=== PATIENT | female | born 1985 | race Caucasian/White ===

== ENCOUNTER 2017-11-03 09:04 | Emergency (ER) | payer OTHER ==
[2017-11-03 09:40] VITALS: BP 156/92
[2017-11-03] MEDS: Ondansetron ODT TAB* 4 MG PO ONE (09:51)
[2017-11-03] MEDS: diPHENhydraMINE IV* 50 MG/ML 1 ml VIAL (BENADRYL) IM ONE (09:52)
--- NOTE | 2017-11-05 07:04 | UC ---
Megan Cordon Jason, scribed for [facility],Miguel Weiner MD on 11/03/17 at 1052 . General HPI - HPI Summary HPI Summary: In Room: This patient is a 32 year old F presenting to [facility] [place] by boyfriend with a chief complaint of vomiting since 1 week ago. The patient states that she has experienced increased stressed as she has been completing finals at [employer], and believes the vomiting is induced by stress and anxiety. The patient rates the pain 0/10 in severity. Symptoms aggravated by stress. Symptoms alleviated by nothing. Patient reports nausea. Patient denies pain, headache, and abdominal pain. Patient has never been in the hospital overnight for any reason. MD note: VSS, afebrile, BP 156/92 pulse ox: 99. Visit history: visit for vomiting. Pt has hx of stress-induced vomiting. Nurses note: Pt states she has been feeling nauseated and vomiting on/off for the past week. 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 Afebrile and without any abdominal pain. - History of Current Complaint Chief Complaint: UCGI Stated Complaint: VOMITING Time Seen by Provider: 11/03/17 09:41 Hx Obtained From: Patient Hx Last Menstrual Period: 10/13/17 Onset/Duration: Sudden Onset, Gradual Onset, Lasting Weeks - since 1 week ago, Still Present - Allergy/Home Medications Allergies/Adverse Reactions: Allergies Allergy/AdvReac Type Severity Reaction Status Date / Time No Known Allergies Allergy Verified 11/03/17 09:41 Home Medications: Home Medications Amphetamine MIXED SALT TAB* [Adderall TAB*] 10 mg PO DAILY 11/03/17 [History Confirmed 11/03/17] Lisdexamfetamine(NF) [Vyvanse(NF)] 20 mg PO DAILY 11/03/17 [History Confirmed ] PMH/Surg Hx/FS Hx/Imm Hx Previously Healthy: No Endocrine History: Other Other Endocrine History: negative DM Respiratory History: Other Other Respiratory History: negative asthma Psychological History: Anxiety - Surgical History Surgical History: None - Family History Known Family History: Positive: Cardiac Disease, Hypertension Negative: Diabetes - Social History Alcohol Use: Weekly Alcohol Amount: wine Substance Use Type: None Smoking Status (MU): Former Smoker Amount Used/How Often: 6 cig/day - Immunization History Most Recent Influenza Vaccination: UNKNOWN Review of Systems All Other Systems Reviewed And Are Negative: Yes - Comments Additional Review of Systems Comments: A 12 point review of systems was completed and significantly positive for: vomiting. The remainder of the review was negative except as stated above in the HPI. Physical Exam Triage Information Reviewed: Yes Vital Signs: Initial Vital Signs Temp 97.5 F 11/03/17 09:35 Pulse 84 11/03/17 09:35 Resp 16 11/03/17 09:35 BP 156/92 11/03/17 09:35 Pulse Ox 99 11/03/17 09:35 - Additional Comments General: The patient is well-nourished in no acute distress and in no acute pain. Skin: The skin is warm and dry and skin color reflects adequate perfusion. HEENT: The head is normocephalic and atraumatic. The pupils are equal and reactive. The conjunctivae are clear and without drainage.Nares are patent and without drainage. Mouth reveals moist mucous membranes and the throat is without erythema and exudate. The external ears are intact. The ear canals are patent and without drainage. The tympanic membranes are intact. Neck is supple with full range of motion and non-tender. There are no carotid bruits. There is no neck vein distension. Respiratory: Chest is non-tender.Lungs are clear to auscultation and breath sounds are symmetrical and equal. Cardiovascular: Heart is regular rate and rhythm.There is no murmur or rub auscultated. There is no peripheral edema and pulses are symmetrical and equal. Abdomen: The abdomen is soft and non-tender. There is no organomegaly palpated. NO PERITANEAL SIGNS. HYPERACTIVE BOWEL SOUNDS. Musculoskeletal: There is no back pain noted.Extremities are non-tender with full range of motion. There is good capillary refill.There is no peripheral edema or calf tenderness elicited. Neurological: Patient is alert and oriented to person, place and time.The patient has symmetrical motor strength in all four extremities.Cranial nerves are grossly intact. Deep tendon reflexes are symmetrical and equal in all four extremities. Psychiatric: The patient has an appropriate affect and does not exhibit any anxiety or depression Course/Dx - Course Course Of Treatment: This patient is a 32 year old F presenting to [facility] accompanied by boyfriend with a chief complaint of vomiting since 1 week ago. Note: Elevated blood pressure without diagnosis of hypertension. Patient referred to PCP within 1 day-4 weeks for follow-up. The patient was given Zofran and Benadryl and responded well after 1 hour. She was no longer vomiting and appeared comfortable. I discussed with her cyclic vomiting syndrome and vomiting due to anxiety. She will follow up with her psychiatrist. Medications have been included in the original chart and reviewed. - Differential Dx - Multi-Symptom Differential Diagnoses: Other - anxiety, viral syndrome, vomiting Provider Diagnoses: vomiting unclear etiology Discharge - Discharge Plan Condition: Stable Disposition: HOME Prescriptions: Ondansetron ODT TAB* [Zofran Odt TAB*] 4 mg PO Q6H #10 tab.odt Patient Education Materials: Acute Nausea and Vomiting (ED) Referrals: No Primary Care Phys,NOPCP [Primary Care Provider] - Additional Instructions: Thanks for helping with the [employer]. WE DISCUSSED: 1. Your vomiting may be a syndrome or it may be related to anxiety. 2. Your blood pressure was elevated; you should re check it within a month and follow up if it's above 120/80. 3. I have given you Zofran. 4. I recommend that you take Benadryl 50mg for vomiting if it occurs again. 5. Ice chips to keep hydrated. 6. Go to ED if you are not urinating or if you are dehydrated. 7. Call or recheck at any time for questions or concerns. The documentation as recorded by the Megan presley Jason accurately reflects the service I personally performed and the decisions made by me, Miguel Solis MD.
== END 2017-11-03 10:57 | disposition home or self-care (01) ==
LOC: UCEAST 09:04
DX: R11.11 Vomiting without nausea (principal); F41.9 Anxiety disorder, unspecified; Z87.891 Personal history of nicotine dependence
CPT/HCPCS: 96372; 99212; A9270-GY; G0463; J1200

== ENCOUNTER 2017-11-04 13:45 | Emergency (ER) | payer OTHER ==
[2017-11-04] MEDS ORDERED: NS 0.9% 1000 ML* 1,000 ML IV ONE (16:08)
[2017-11-04] MEDS ORDERED: LORazepam INJ* 2 MG/ML 1 ML VIAL IV PUSH ONE (16:10)
[2017-11-04 16:54] VITALS: BP 132/89
--- NOTE | 2017-11-05 22:04 | UC ---
Nausea/Vomiting/Diarrhea HPI - HPI Summary HPI Summary: 32 y/o female presents to the urgent care accompany by boyfriend c/o multiple episodes of nausea and vomiting for the past week. Pt reports she was seen here yesterday for her vomiting and Rx Zofran PO and Bendaryl PO and her symptoms have not improved. She had already 6 episodes of vomiting today. some are clear and some with bile. Pt states she has Hx of cyclic vomiting syndrome induced by anxiety or stress. She was been recently in finals at [employer]. She hasn't been eating, only drinking. Pt denies abdominal pain, hematemesis, diarrhea, fever, SOB, chest pain, or urinary symptoms. - History of Current Complaint Chief Complaint: UCAbdominalPain Stated Complaint: VOMITING Time Seen by Provider: 11/04/17 15:50 Hx Obtained From: Patient, Family/Follow Up Rep - boyfriend Hx Last Menstrual Period: 10/14/17 ?: No Onset/Duration: Gradual Onset, Lasting Weeks - 1 week, Still Present, Worse Since - yesterday Timing: Constant Severity Initially: Mild Severity Currently: Moderate Pain Intensity: 0 Pain Scale Used: 0-10 Numeric Character: Not Applicable Aggravating Factor(s): Food Alleviating Factor(s): Nothing Vomiting Frequency: Every 1-2 hours Nausea/Vomiting Duration: 3-7 days Vomiting Characteristics: Bilious, Nonbilious Diarrhea Presence: No - Risk Factors Influenza Risk Factors: Negative Surgical Obstruction Risk Factor(s): Negative - Allergies/Home Medications Allergies/Adverse Reactions: Allergies Allergy/AdvReac Type Severity Reaction Status Date / Time No Known Allergies Allergy Verified 11/04/17 14:03 Home Medications: Home Medications diPHENhydraMINE PO* [Benadryl PO 25 MG TAB*] 25 mg PO Q6H PRN 11/04/17 [History Confirmed 11/04/17] PMH/Surg Hx/FS Hx/Imm Hx Previously Healthy: Yes Other GI/ History: cyclic vomiting syndrome Psychological History: Anxiety, Depression - Surgical History Surgical History: None - Family History Known Family History: Positive: Cardiac Disease, Hypertension Negative: Diabetes - Social History Occupation: Student Lives: With Family Alcohol Use: None Alcohol Amount: wine Substance Use Type: None Smoking Status (MU): Former Smoker Amount Used/How Often: 6 cig/day - Immunization History Most Recent Influenza Vaccination: UNKNOWN Review of Systems Constitutional: Fatigue Skin: Negative Eyes: Negative ENT: Negative Respiratory: Negative Cardiovascular: Negative Gastrointestinal: Vomiting, Nausea Genitourinary: Negative Motor: Weakness Neurovascular: Negative Musculoskeletal: Negative Neurological: Negative Psychological: Negative Is Patient Immunocompromised?: No All Other Systems Reviewed And Are Negative: Yes Physical Exam Triage Information Reviewed: Yes Vital Signs: Initial Vital Signs Temp 97.8 F 11/04/17 14:05 Pulse 83 11/04/17 14:05 Resp 18 11/04/17 14:05 BP 149/96 11/04/17 14:05 Pulse Ox 99 11/04/17 14:05 - Additional Comments Vital Signs Reviewed: Yes General:Patient is a well developed and nourished female who is laying on the examining table w/ mild distress due to vomiting. Eyes: Positive: Conjunctiva Clear - PERRLA, EOMI, fundi grossly normal ENT: Positive: Normal ENT inspection, Hearing grossly normal, Pharynx normal, TMs normal Neck: Positive: Supple, Nontender, No Lymphadenopathy Respiratory: Positive: Chest non-tender, Lungs clear, Normal breath sounds, No respiratory distress Cardiovascular: Positive: RRR,S1 and S2 present, No Murmur, Pulses Normal, Brisk Capillary Refill Abdomen Description: Positive: Nontender, Other: - Abd: Flat with no distention. No surface trauma, scars, incisions. hyperactive bowel sounds present in all four quadrants. No tenderness, guarding, rigidity to palpation. No masses palpated, no pulsation in epigastric area. No organomegaly. Negative Austwell signs. No periumbilical tenderness. No rebound in the lower quadrants. NT over McBurneys point. no distension. Good femoral pulses bilaterally. No hernia noted. No CVAT bilaterally Musculoskeletal: Positive: Strength Intact, ROM Intact, No Edema,FROM in all major joints, no edema, no cyanosis or clubbing. Neuro: Alert and oriented x 3. No acute neurological deficits. Speech is normal. Psycological: WNL Skin: Dry and warm, mouth mucosa and lips dry, Naus/Vom/Diarrhea Course/Dx - Course Course Of Treatment: 32 y/o female presents to the urgent care accompany by boyfriend c/o multiple episodes of nausea and vomiting for the past week. Pt reports she was seen here yesterday for her vomiting and Rx Zofran PO and Bendaryl PO and her symptoms have not improved. She had already 6 episodes of vomiting today. some are clear and some with bile. Pt states she has Hx of cyclic vomiting syndrome induced by anxiety or stress. She was been recently in finals at [employer]. She hasn't been eating, only drinking. Pt denies abdominal pain,hematemesis, diarrhea, fever, SOB, chest pain, or urinary symptoms. Hx obtained. PE: WNL, Pt mildly dehydrated and still vomiting. Pt given 0.9% 1000 cc NS and Lorazepan 0.[address] Andrew Consulted on Pt' s symptoms and he agreed with plan of care. After 1/2 of the NS Pt stated she was feeling better and vomitng stopped. Pt finished IV fluids and felt better. Pt Rx Phenergan PO and advised to increase fluid intake and eat small portions of soft meals. Pt's BP elevated today advised to decrease salt in her diet, monitor BP and F/U with PCP. Pt given GI referral for further evaluation on her cyclic vomiting syndrome. Pt explained D/C instructions. Pt undersood and agreed with plan of care, left the clinic stating feeling better, hemodynamically stable, A&OX3 - Differential Dx/Diagnosis Differential Diagnoses - Female: , Gerd, Gastroenteritis (Viral), Gastroenteritis (Bacterial), Vomiting, Peptic Ulcer Disease, Gastritis, Dehydration Provider Diagnoses: 1- Acute nausea and vomiting. 2- Elevated BP w/o Hx of HTN Condition At Discharge: Stable - Physician Notification/Consults Discussed Case/Management/Disposition Of Patient With: Narinder Andrew - DR Andrew agreed with Pt's plan of care Discharge - Discharge Plan Condition: Stable Disposition: HOME Prescriptions: Promethazine TAB* [Phenergan TAB*] 25 mg PO Q6H PRN #12 tab PRN Reason: Vomiting Patient Education Materials: Acute Nausea and Vomiting (ED) Referrals: [facility] [place]] - 2 Days Hawk Payan MD [Medical Doctor] - 3 Days Additional Instructions: 1- Please increase fluid intake with Gatorade or Pedialyte OTC. eat soft meals and rest. 2- Take the Phenergan PO as directed to alleviate nausea and vomiting 3- If you develops fever or abdominal pain w/ recurrent episodes of vomiting please go the ER, otherwise f/u with your PCP if vomiting not resolving in 2-3 days 4- F/u with GI DR Payan for further evaluation and treatment in your chronic cyclic vomiting 5- Your BP is elevated today. please decrease salt in your diet, monitor BP and if it continues to be elevated please f/u with your PCP for further management
== END 2017-11-04 18:10 | disposition home or self-care (01) ==
LOC: UCEAST 13:45
DX: R11.2 Nausea with vomiting, unspecified (principal); R03.0 Elevated blood-pressure reading, without diagnosis of hypertension
CPT/HCPCS: 96361; 96374; 99212; G0463; J2060